=== PATIENT | female | born 1955 | race Caucasian/White ===

== ENCOUNTER 2021-07-26 11:12 | Outpatient (CLI) | payer MEDICARE, OTHER ==
[2021-07-27 12:27] LABS: SARS-CoV-2 PCR by NAA Not Detected (NotDetected)
== END 2021-07-26 11:13 | disposition home or self-care (01) ==
LOC: LABBT 11:12
PROVIDERS: ATTEND Internal Medicine Gastroenterology
DX: Z20.822 Contact with and (suspected) exposure to COVID-19 (principal)
CPT/HCPCS: U0003; U0005

== ENCOUNTER → 2021-07-30 | Day surgery (SDC) | payer MEDICARE, OTHER ==
[2021-07-26 15:18] VITALS: BMI 51.7
== END | disposition home or self-care (01) ==
LOC: SDC 06:34
PROVIDERS: ATTEND Internal Medicine Gastroenterology
DX: Z12.11 Encounter for screening for malignant neoplasm of colon (principal); J44.9 Chronic obstructive pulmonary disease, unspecified; I11.0 Hypertensive heart disease with heart failure; I50.9 Heart failure, unspecified; K21.9 Gastro-esophageal reflux disease without esophagitis; E11.9 Type 2 diabetes mellitus without complications; E66.01 Morbid (severe) obesity due to excess calories; Z53.8 Procedure and treatment not carried out for other reasons; Z68.43 Body mass index [BMI] 50.0-59.9, adult; Z86.010 Personal history of colon polyps; Z87.891 Personal history of nicotine dependence; Z79.01 Long term (current) use of anticoagulants; Z79.4 Long term (current) use of insulin; Z79.82 Long term (current) use of aspirin; Z79.84 Long term (current) use of oral hypoglycemic drugs; Z79.890 Hormone replacement therapy; Z79.899 Other long term (current) drug therapy; Z88.1 Allergy status to other antibiotic agents; Z88.5 Allergy status to narcotic agent
CPT/HCPCS: 36416

== ENCOUNTER 2023-05-14 09:12 | Inpatient (IN) | payer MEDICARE, MEDICAID ==
[2023-05-14] MEDS ORDERED: Ipratropium Bromide 2.5 ml Neb ONE (09:40)
[2023-05-14] MEDS ORDERED: Albuterol 2.5 MG (0.5 mL) NEB ONE (09:40)
[2023-05-14 09:58] LABS: #Eosinphils 0.3 thou/uL (0.0-0.7); #Monocytes 0.3 thou/uL (0.11-0.59); #Neutrophils 4.5 thou/uL (1.40-6.50); %Basophils 0.2 % (0.0-1.0); %Eosinophils 4.2 % (0.0-10.0); %Lymphocytes 19.9 % (21.0-51.0); %Monocytes 5.3 % (0.0-10.0); %Neutrophils 69.8 % (42.0-75.0); Hematocrit 39.2 % (36.0-47.0); Hemoglobin 12.2 g/dL (12.0-16.0); Mean Corpuscular HGB CONC 31.1 g/dL (32.0-36.0); Mean Corpuscular Hemoglobin 32.9 pg (27.0-31.0); Mean Corpuscular Volume 105.7 fl (78.0-98.0); Mean Platelet Volume 11.3 fL (7.4-10.4); Platelet Count 125 10x3/uL (130-400); RBC Distribution Width 15.5 % (11.5-14.5); Red Blood Cell (RBC) Count 3.71 mill/uL (4.20-5.40); White Blood Cell (WBC) Count 6.5 10x3/uL (4.8-10.8)
[2023-05-14 10:14] LABS: ALT (SGPT) 17 U/L (8-55); AST (SGOT) 21 U/L (5-34); Albumin 3.5 g/dL (3.4-4.8); Alkaline Phosphatase 40 U/L (40-110); BUN (Urea Nitrogen) 41 mg/dL (9.8-20.1); Bilirubin, Total 0.3 mg/dL (0.2-1.2); Calc. Creatinine Clearance 0 mL/min (70-130); Calcium 10.1 mg/dL (7.8-10.44); Estimated GFR 45; Globulin 2.9 g/dL (2.4-3.5); Glucose 122 mg/dL (80-115); Protein, Total 6.4 g/dL (5.8-8.1)
[2023-05-14 10:23] LABS: Anion Gap 15 mmol/L (10-20); Carbon Dioxide 36 mmol/L (23-31); Chloride 98 mmol/L (98-107); Potassium 4.8 mmol/L (3.5-5.1); Sodium 144 mmol/L (136-145)
[2023-05-14 10:25] LABS: Troponin I 0.041 ng/mL (< 0.028)
[2023-05-14 10:27] LABS: Influenza A by NAA Not Detected (NotDetected); Influenza B by NAA Not Detected (NotDetected); SARS-CoV-2 NAA Rapid Test Not Detected (NotDetected)
[2023-05-14] MEDS ORDERED: Iopamidol-370 76% 500 ML MDV (1 ML CHARGE) ONE (13:32)
[2023-05-14] MEDS ORDERED: cefTRIAXone (ROCEPHIN) 1 GM VIAL ONE (13:34)
[2023-05-14] MEDS ORDERED: Sodium Chloride 0.9% 100 ML ONE (13:35)
[2023-05-14] MEDS ORDERED: Ipratropium/Albuterol 3 ML NEB NEB PRN ×2 (13:42→15:15)
[2023-05-14] MEDS ORDERED: Acetaminophen 325 MG TAB PO PRN (13:42)
[2023-05-14] MEDS ORDERED: Vancomycin 1 GM/200 ML (FROZEN) BAG ONE (14:00)
[2023-05-14] MEDS ORDERED: Glucagon 1 MG/ML KIT IM PRN (15:01)
[2023-05-14] MEDS ORDERED: Dextrose 5% in Water 1,000 ML IV PRN (15:01)
[2023-05-14] MEDS ORDERED: Dextrose 50% Abboject 50 ML SYRINGE SLOW IVP PRN (15:01)
[2023-05-14 17:11] LABS: Troponin I 0.024 ng/mL (< 0.028)
[2023-05-14] MEDS ORDERED: Senokot S 8.6-50 MG TAB PO PRN (18:11)
[2023-05-14] MEDS: Ipratropium/Albuterol 3 ML NEB NEB SCH (18:22)
[2023-05-14 20:21] VITALS: BMI 54.4
[2023-05-14] MEDS: Vancomycin (BATCH) 1.5 GM in Premix 1 BAG IVPB SCH (21:11)
[2023-05-14] MEDS: guaiFENesin ER 600 MG TAB PO SCH (21:11)
[2023-05-14] MEDS: busPIRone HCl 10 MG TAB PO SCH (21:11)
[2023-05-14] MEDS: Vancomycin 1.25 GM in Sodium Chloride 0.9% 250 ML 250 ML IVPB SCH (22:08)
[2023-05-15] MEDS ORDERED: Loperamide HCl 2 MG CAP PO PRN (03:59)
[2023-05-15] MEDS ORDERED: Ondansetron ODT 4 MG TAB PO PRN (03:59)
[2023-05-15] MEDS: Levothyroxine Sodium 50 MCG TAB PO SCH (05:55)
[2023-05-15 06:36] LABS: #Monocytes 0.3 thou/uL (0.11-0.59); #Neutrophils 2.8 thou/uL (1.40-6.50); %Basophils 0.3 % (0.0-1.0); %Lymphocytes 19.5 % (21.0-51.0); %Neutrophils 70.9 % (42.0-75.0); Hematocrit 39.3 % (36.0-47.0); Hemoglobin 11.7 g/dL (12.0-16.0); Mean Corpuscular HGB CONC 29.8 g/dL (32.0-36.0); Mean Corpuscular Hemoglobin 31.2 pg (27.0-31.0); Mean Corpuscular Volume 104.8 fl (78.0-98.0); Mean Platelet Volume 11.6 fL (7.4-10.4); Platelet Count 124 10x3/uL (130-400); RBC Distribution Width 15.6 % (11.5-14.5); Red Blood Cell (RBC) Count 3.75 mill/uL (4.20-5.40)
[2023-05-15] MEDS: HumaLOG 300 UNITS/3 ML VIAL SC PRN ×2 (06:53→20:43)
[2023-05-15 07:08] LABS: ALT (SGPT) 15 U/L (8-55); AST (SGOT) 16 U/L (5-34); Albumin 3.4 g/dL (3.4-4.8); Alkaline Phosphatase 37 U/L (40-110); Anion Gap 12 mmol/L (10-20); BUN (Urea Nitrogen) 40 mg/dL (9.8-20.1); Bilirubin, Total 0.4 mg/dL (0.2-1.2); Calc. Creatinine Clearance 108 mL/min (70-130); Calcium 9.7 mg/dL (7.8-10.44); Carbon Dioxide 36 mmol/L (23-31); Chloride 99 mmol/L (98-107); Estimated GFR 47; Globulin 2.8 g/dL (2.4-3.5); Glucose 219 mg/dL (80-115); Potassium 4.5 mmol/L (3.5-5.1); Protein, Total 6.2 g/dL (5.8-8.1); Sodium 142 mmol/L (136-145)
[2023-05-15 07:31] LABS: Legionella Urinary Ag Negative (Negative); Strep pneumo Urine Ag NEGATIVE (NEGATIVE)
[2023-05-15] MEDS: Dicyclomine 20 MG TAB PO SCH (08:44)
[2023-05-15] MEDS: Torsemide 20 MG TAB PO SCH (08:44)
[2023-05-15] MEDS: Metolazone 5 MG TAB PO SCH (08:44)
[2023-05-15] MEDS: Gabapentin 300 MG CAP PO SCH (08:44)
[2023-05-15] MEDS: Apixaban 5 MG TAB PO SCH (08:45)
[2023-05-15] MEDS: Spironolactone 25 MG TAB PO SCH (08:45)
[2023-05-15] MEDS: Cyanocobalamin (Vitamin B-12) 1,000 MCG TAB PO SCH (08:45)
[2023-05-15] MEDS: Insulin Glargine 30 UNITS/0.3 ML VIAL SC SCH (08:45)
[2023-05-15] MEDS: Ferrous Sulfate 325 MG TAB PO SCH (08:45)
[2023-05-15] MEDS: Digoxin 0.125 MG TAB PO SCH (08:45)
[2023-05-15] MEDS ORDERED: Enoxaparin 80 MG (0.8 mL) SYRINGE SC SCH (09:00)
[2023-05-15] MEDS ORDERED: HumaLOG 300 UNITS/3 ML VIAL SC SCH (09:00)
[2023-05-15] MEDS ORDERED: Enoxaparin 40 MG (0.4 mL) SYRINGE SC SCH (09:00)
[2023-05-15] MEDS: cefTRIAXone\\ROCEPHIN 1 GM in Sodium Chloride 0.9% 100 ML IVPB SCH (14:10)
[2023-05-15] MEDS: Carvedilol 25 MG TAB PO SCH (17:50)
[2023-05-15] MEDS: traMADol HCl 50 MG TAB PO PRN (20:35)
[2023-05-15] MEDS: Fenofibrate Nanocrystallized 145 MG TAB PO SCH (20:37)
[2023-05-15] MEDS: Atorvastatin Calcium 10 MG TAB PO SCH (20:37)
[2023-05-15] MEDS: Vancomycin (BATCH) 1.5 GM in Premix 1 BAG IVPB SCH (21:12)
[2023-05-16 06:03] LABS: #Eosinphils 0.1 thou/uL (0.0-0.7); #Monocytes 0.3 thou/uL (0.11-0.59); #Neutrophils 4.8 thou/uL (1.40-6.50); %Basophils 0.3 % (0.0-1.0); %Eosinophils 2.1 % (0.0-10.0); %Lymphocytes 19.6 % (21.0-51.0); %Monocytes 5.1 % (0.0-10.0); %Neutrophils 72.5 % (42.0-75.0); Hematocrit 38.7 % (36.0-47.0); Hemoglobin 11.8 g/dL (12.0-16.0); Mean Corpuscular HGB CONC 30.5 g/dL (32.0-36.0); Mean Corpuscular Hemoglobin 31.6 pg (27.0-31.0); Mean Corpuscular Volume 103.5 fl (78.0-98.0); Mean Platelet Volume 11.6 fL (7.4-10.4); Platelet Count 136 10x3/uL (130-400); RBC Distribution Width 15.7 % (11.5-14.5); Red Blood Cell (RBC) Count 3.74 mill/uL (4.20-5.40); White Blood Cell (WBC) Count 6.7 10x3/uL (4.8-10.8)
[2023-05-16 06:28] LABS: ALT (SGPT) 12 U/L (8-55); AST (SGOT) 15 U/L (5-34); Albumin 3.2 g/dL (3.4-4.8); Alkaline Phosphatase 38 U/L (40-110); BUN (Urea Nitrogen) 47 mg/dL (9.8-20.1); Bilirubin, Total 0.3 mg/dL (0.2-1.2); Calc. Creatinine Clearance 105 mL/min (70-130); Calcium 9.8 mg/dL (7.8-10.44); Estimated GFR 46; Globulin 2.8 g/dL (2.4-3.5); Glucose 110 mg/dL (80-115)
[2023-05-16 06:38] LABS: Anion Gap 12 mmol/L (10-20); Carbon Dioxide 36 mmol/L (23-31); Chloride 98 mmol/L (98-107); Potassium 4.1 mmol/L (3.5-5.1); Sodium 142 mmol/L (136-145)
[2023-05-16] MEDS: Amoxicillin/Potassium Clav 875 MG TAB PO SCH (12:01)
[2023-05-16] MEDS: Doxycycline 100 MG CAP PO SCH (12:01)
[2023-05-16 12:15] VITALS: TEMP 98.1
[2023-05-16 16:00] VITALS: BP 130/79
[2023-05-16] MEDS ORDERED: Doxycycline 100 MG CAP PO SCH (21:00)
[2023-05-16] MEDS ORDERED: Amoxicillin/Potassium Clav 875 MG TAB PO SCH ×2 (21:00)
== END 2023-05-16 16:31 | disposition home or self-care (01) | DRG 193 ==
LOC: ERS 09:12 → ERHOLD 13:50 → 2NO 18:40
PROVIDERS: ADMIT Emergency Medicine; ATTEND Emergency Medicine
DX: J18.9 Pneumonia, unspecified organism (principal); J96.21 Acute and chronic respiratory failure with hypoxia; I50.22 Chronic systolic (congestive) heart failure; I13.0 Hypertensive heart and chronic kidney disease with heart failure and stage 1 through stage 4 chronic kidney disease, or unspecified chronic kidney disease; Z68.43 Body mass index [BMI] 50.0-59.9, adult; J44.9 Chronic obstructive pulmonary disease, unspecified; I48.91 Unspecified atrial fibrillation; N18.9 Chronic kidney disease, unspecified; E78.5 Hyperlipidemia, unspecified; E03.9 Hypothyroidism, unspecified; E11.22 Type 2 diabetes mellitus with diabetic chronic kidney disease; Z88.5 Allergy status to narcotic agent; Z88.1 Allergy status to other antibiotic agents; Z79.899 Other long term (current) drug therapy; Z79.4 Long term (current) use of insulin; Z79.01 Long term (current) use of anticoagulants; I25.10 Atherosclerotic heart disease of native coronary artery without angina pectoris; Z98.890 Other specified postprocedural states; F39 Unspecified mood [affective] disorder; E66.01 Morbid (severe) obesity due to excess calories; Z11.52 Encounter for screening for COVID-19
CPT/HCPCS: 36415; 36416; 71045; 71275; 80053; 83605; 83880; 84145; 84484; 85025; 85379; 87040; 87081; 87449; 87899; 93005; 96365; 96366; 96368; J0696; J1815; J3370; J3370-JW; J3490; J7611; J7620; Q9967

== ENCOUNTER 2023-09-01 13:21 | Inpatient (IN) | payer MEDICARE, MEDICAID ==
[2023-09-01 14:11] LABS: #Basophils 0.03 10x3/uL (0.0-0.2); %Basophils 0.4 % (0.0-1.0); %Lymphocytes 13.2 % (21.0-51.0); %Monocytes 4.5 % (0.0-10.0); %Neutrophils 78.5 % (42.0-75.0); Hematocrit 44.8 % (36.0-47.0); Hemoglobin 14.4 g/dL (12.0-16.0); Mean Corpuscular HGB CONC 32.1 g/dL (32.0-36.0); Mean Corpuscular Hemoglobin 31.8 pg (27.0-31.0); Mean Corpuscular Volume 98.9 fL (78.0-98.0); Mean Platelet Volume 12.2 fL (7.4-10.4); Platelet Count 134 10x3/uL (130-400); RBC Distribution Width 15.5 % (11.5-14.5); Red Blood Cell (RBC) Count 4.53 mill/uL (4.20-5.40)
[2023-09-01 14:29] LABS: ALT (SGPT) 13 U/L (8-55); AST (SGOT) 20 U/L (5-34); Albumin 3.2 g/dL (3.4-4.8); Alkaline Phosphatase 44 U/L (40-110); Anion Gap 17 mmol/L (10-20); BUN (Urea Nitrogen) 79 mg/dL (9.8-20.1); Bilirubin, Total 0.7 mg/dL (0.2-1.2); Calc. Creatinine Clearance 0 mL/min (70-130); Calcium 9.9 mg/dL (7.8-10.44); Carbon Dioxide 28 mmol/L (23-31); Chloride 95 mmol/L (98-107); Estimated GFR 24; Globulin 3.4 g/dL (2.4-3.5); Glucose 294 mg/dL (80-115); Potassium 4.1 mmol/L (3.5-5.1); Protein, Total 6.6 g/dL (5.8-8.1); Sodium 136 mmol/L (136-145)
[2023-09-01 14:34] LABS: Troponin I 0.032 ng/mL (< 0.028)
[2023-09-01] MEDS ORDERED: Glucagon 1 MG/ML KIT IM PRN (16:12)
[2023-09-01] MEDS ORDERED: Dextrose 50% Abboject 50 ML SYRINGE SLOW IVP PRN (16:12)
[2023-09-01] MEDS ORDERED: HumaLOG 300 UNITS/3 ML VIAL SC PRN (16:12)
[2023-09-01] MEDS ORDERED: Dextrose 5% in Water 1,000 ML IV PRN (16:12)
[2023-09-01] MEDS ORDERED: Nitroglycerin 0.4 MG TAB 1 EACH ONE (16:51)
[2023-09-01] MEDS ORDERED: Furosemide 40 MG (4 mL) VIAL ONE (16:51)
[2023-09-01] MEDS ORDERED: Acetaminophen 650 MG/20.3 ML UDCUP ONE (16:52)
[2023-09-01] MEDS ORDERED: Aspirin Chewable 81 MG TAB ONE (16:52)
[2023-09-01 17:20] LABS: Cardiac Risk 3.4 (Less than 4.5)
[2023-09-01 18:38] LABS: Hemoglobin A1c 8.6 % (4.0-6.0)
[2023-09-01 18:49] LABS: Troponin I 0.041 ng/mL (< 0.028)
[2023-09-01] MEDS: Insulin Glargine 30 UNITS/0.3 ML VIAL SC SCH (23:05)
[2023-09-02] MEDS: Carvedilol 25 MG TAB PO SCH (00:47)
[2023-09-02] MEDS: Furosemide 40 MG (4 mL) VIAL SLOW IVP SCH (00:48)
[2023-09-02] MEDS ORDERED: Ondansetron ODT 4 MG TAB PO PRN (02:45)
[2023-09-02] MEDS ORDERED: Loperamide HCl 2 MG CAP PO PRN (02:45)
[2023-09-02] MEDS ORDERED: Senokot S 8.6-50 MG TAB PO PRN (02:45)
[2023-09-02] MEDS ORDERED: Acetaminophen 325 MG TAB PO PRN (02:45)
[2023-09-02 03:12] LABS: Bacteria/HPF 4+ HPF (None Seen); Bilirubin Negative (Negative); Blood, Urine Negative (Negative); CAUTI Indications for Culture Alt mental st,lethar; Clarity Turbid (Clear); Glucose, Urine (Dipstick) Normal (Negative); Ketone, Urine Negative (Negative); Leukocyte 500 Leu/uL (Negative); Nitrite Negative (Negative); Protein, Urine (Dipstick) 50 mg/dL (Neg-Trace); RBC/HPF 0-3 HPF (0-3); Specific Gravity, Urine 1.012 (1.002-1.036); Triple Phosphate Crystal 4+ HPF (None Seen); Urobilinogen Normal mg/dL (Less than 2); pH, Urine 8.5 (5.0-9.0)
[2023-09-02 03:13] LABS: Urine Culture Reflex No No
[2023-09-02] MEDS: Levothyroxine Sodium 50 MCG TAB PO SCH (05:32)
[2023-09-02 05:43] LABS: #Basophils 0.03 10x3/uL (0.0-0.2); %Basophils 0.4 % (0.0-1.0); %Eosinophils 4.3 % (0.0-10.0); %Lymphocytes 22.5 % (21.0-51.0); %Monocytes 7.1 % (0.0-10.0); %Neutrophils 65.2 % (42.0-75.0); Hematocrit 43.8 % (36.0-47.0); Hemoglobin 14.3 g/dL (12.0-16.0); Mean Corpuscular HGB CONC 32.6 g/dL (32.0-36.0); Mean Corpuscular Hemoglobin 32.6 pg (27.0-31.0); Mean Platelet Volume 12.5 fL (7.4-10.4); Platelet Count 144 10x3/uL (130-400); RBC Distribution Width 15.7 % (11.5-14.5); Red Blood Cell (RBC) Count 4.38 mill/uL (4.20-5.40)
[2023-09-02 06:11] LABS: ALT (SGPT) 10 U/L (8-55); AST (SGOT) 28 U/L (5-34); Albumin 3.3 g/dL (3.4-4.8); Alkaline Phosphatase 39 U/L (40-110); Anion Gap 15 mmol/L (10-20); BUN (Urea Nitrogen) 87 mg/dL (9.8-20.1); Bilirubin, Total 0.9 mg/dL (0.2-1.2); Calc. Creatinine Clearance 58 mL/min (70-130); Calcium 10.3 mg/dL (7.8-10.44); Carbon Dioxide 33 mmol/L (23-31); Chloride 94 mmol/L (98-107); Estimated GFR 24; Globulin 3.7 g/dL (2.4-3.5); Glucose 190 mg/dL (80-115); Potassium 3.9 mmol/L (3.5-5.1); Sodium 138 mmol/L (136-145)
[2023-09-02] MEDS: Ipratropium/Albuterol 3 ML NEB NEB SCH (07:05)
[2023-09-02] MEDS ORDERED: Carvedilol 25 MG TAB PO SCH (08:00)
[2023-09-02] MEDS ORDERED: Aspirin 325 MG TAB PO SCH (09:00)
[2023-09-02] MEDS ORDERED: Insulin Glargine 30 UNITS/0.3 ML VIAL SC SCH (09:00)
[2023-09-02] MEDS: Lactated Ringer's 1,000 ML IV SCH (13:05)
[2023-09-02] MEDS: Ferrous Sulfate 325 MG TAB PO SCH (13:05)
[2023-09-02] MEDS: Aspirin 81 mg Enteric Coated Tablet PO SCH (13:06)
[2023-09-02] MEDS: Budesonide DR 3 MG CAP PO SCH (13:07)
[2023-09-02] MEDS: Alogliptin 25 MG TAB PO SCH (13:07)
[2023-09-02] MEDS: busPIRone HCl 10 MG TAB PO SCH (13:07)
[2023-09-02] MEDS: Cyanocobalamin (Vitamin B-12) 1,000 MCG TAB PO SCH (13:07)
[2023-09-02] MEDS: Gabapentin 300 MG CAP PO SCH (13:08)
[2023-09-02] MEDS: Digoxin 0.125 MG TAB PO SCH (13:08)
[2023-09-02] MEDS: Dicyclomine 20 MG TAB PO SCH (13:08)
[2023-09-02] MEDS: Insulin Glargine 30 UNITS/0.3 ML VIAL SC SCH (13:09)
[2023-09-02] MEDS: Torsemide 20 MG TAB PO SCH (13:10)
[2023-09-02] MEDS: Spironolactone 25 MG TAB PO SCH (13:14)
[2023-09-02] MEDS: Metolazone 5 MG TAB PO SCH (13:14)
[2023-09-02] MEDS: HumaLOG 300 UNITS/3 ML VIAL SC PRN (17:54)
[2023-09-02] MEDS ORDERED: Atorvastatin Calcium 10 MG TAB PO SCH (21:00)
[2023-09-02] MEDS: Atorvastatin Calcium 40 MG TAB PO SCH (22:23)
[2023-09-02] MEDS: Fenofibrate Nanocrystallized 145 MG TAB PO SCH (22:23)
[2023-09-02] MEDS: traMADol HCl 50 MG TAB PO PRN (22:24)
[2023-09-03 05:11] LABS: #Basophils Less than 0.03 10x3/uL (0.0-0.2); %Basophils 0.3 % (0.0-1.0); %Eosinophils 3.2 % (0.0-10.0); %Lymphocytes 18.5 % (21.0-51.0); %Monocytes 6.4 % (0.0-10.0); %Neutrophils 71.2 % (42.0-75.0); Hematocrit 43.5 % (36.0-47.0); Hemoglobin 14.3 g/dL (12.0-16.0); Mean Corpuscular HGB CONC 32.9 g/dL (32.0-36.0); Mean Corpuscular Hemoglobin 32.1 pg (27.0-31.0); Mean Corpuscular Volume 97.5 fL (78.0-98.0); Platelet Count 130 10x3/uL (130-400); RBC Distribution Width 15.8 % (11.5-14.5); Red Blood Cell (RBC) Count 4.46 mill/uL (4.20-5.40)
[2023-09-03 05:38] LABS: ALT (SGPT) 7 U/L (8-55); AST (SGOT) 19 U/L (5-34); Albumin 3.1 g/dL (3.4-4.8); Alkaline Phosphatase 39 U/L (40-110); Anion Gap 16 mmol/L (10-20); BUN (Urea Nitrogen) 90 mg/dL (9.8-20.1); Bilirubin, Total 0.9 mg/dL (0.2-1.2); Calc. Creatinine Clearance 63 mL/min (70-130); Calcium 10.1 mg/dL (7.8-10.44); Carbon Dioxide 30 mmol/L (23-31); Chloride 97 mmol/L (98-107); Estimated GFR 27; Globulin 3.3 g/dL (2.4-3.5); Glucose 208 mg/dL (80-115); Potassium 3.4 mmol/L (3.5-5.1); Protein, Total 6.4 g/dL (5.8-8.1); Sodium 140 mmol/L (136-145)
[2023-09-03] MEDS: Empagliflozin 10 MG TAB PO SCH (08:41)
[2023-09-03] MEDS: Potassium Chloride 20 MEQ TAB PO SCH (09:37)
[2023-09-03 13:04] VITALS: BP 116/68; TEMP 97.8
[2023-09-03] MEDS ORDERED: Insulin Glargine 30 UNITS/0.3 ML VIAL SC SCH (21:00)
== END 2023-09-03 15:30 | DRG 682 ==
LOC: ERS 13:21 → 2NO 16:12 → OBSVTOIN 09-03 14:33
PROVIDERS: ADMIT Family Medicine; ATTEND Family Medicine
DX: N17.9 Acute kidney failure, unspecified (principal); I21.A1 Myocardial infarction type 2; I50.22 Chronic systolic (congestive) heart failure; Z68.43 Body mass index [BMI] 50.0-59.9, adult; R07.89 Other chest pain; E66.9 Obesity, unspecified; E78.5 Hyperlipidemia, unspecified; J44.9 Chronic obstructive pulmonary disease, unspecified; I25.10 Atherosclerotic heart disease of native coronary artery without angina pectoris; I11.0 Hypertensive heart disease with heart failure; I48.91 Unspecified atrial fibrillation; E11.9 Type 2 diabetes mellitus without complications; Z98.890 Other specified postprocedural states; Z79.4 Long term (current) use of insulin; Z79.899 Other long term (current) drug therapy; Z88.8 Allergy status to other drugs, medicaments and biological substances; Z88.5 Allergy status to narcotic agent; Z79.01 Long term (current) use of anticoagulants
CPT/HCPCS: 36415; 36416; 70450; 71045; 80053; 80061; 81001; 82570; 83036; 83880; 83930; 83935; 84443; 84484; 84540; 85025; 85379; 87077; 87086; 87186; 93005; 93306; 94640; 96374; 96376; G0378; J1815; J1940; J7120; J7620

== ENCOUNTER 2023-10-08 09:27 | Inpatient (IN) | payer MEDICARE, MEDICAID ==
[2023-10-08] MEDS ORDERED: Acetaminophen 500 MG TAB ONE (10:09)
[2023-10-08] MEDS ORDERED: Ketorolac Tromethamine 30 MG (1 mL) VIAL ONE (10:09)
[2023-10-08] MEDS ORDERED: Piperacillin/Tazobactam 4.5 GM VIAL ONE (10:09)
[2023-10-08] MEDS ORDERED: Sodium Chloride 0.9% 100 ML ONE (10:09)
[2023-10-08 10:17] LABS: Actual Bicarbonate (HCO3v) 31.8 mEq/L (22-28); Analyzer IN Cardio ER; Base Excess 7.4 mEq/L (-2.0 to +3.0); Calcium, Ionized (venous) 1.13 mmol/L (1.16-1.32); Chloride (VBG) 95 mmol/L (98-106); Hematocrit-VBG 44 % (36.0-47.0); Hemoglobin (Hb) 15.1 g/dL (11.7-16.1); Potassium (VBG) 3.32 mmol/L (3.70-5.30); Sodium 139 mmol/L (133-146)
[2023-10-08 10:29] LABS: #Basophils Less than 0.03 10x3/uL (0.0-0.2); #Eosinphils Less than 0.03 10x3/uL (0.0-0.7); %Basophils 0.1 % (0.0-1.0); %Eosinophils 0.1 % (0.0-10.0); %Lymphocytes 3.8 % (21.0-51.0); %Monocytes 3.7 % (0.0-10.0); %Neutrophils 91.7 % (42.0-75.0); Hematocrit 43.9 % (36.0-47.0); Hemoglobin 14.1 g/dL (12.0-16.0); Mean Corpuscular HGB CONC 32.1 g/dL (32.0-36.0); Mean Corpuscular Hemoglobin 32.5 pg (27.0-31.0); Mean Corpuscular Volume 101.2 fL (78.0-98.0); Mean Platelet Volume 11.2 fL (7.4-10.4); Platelet Count 164 10x3/uL (130-400); RBC Distribution Width 16.1 % (11.5-14.5); Red Blood Cell (RBC) Count 4.34 mill/uL (4.20-5.40)
[2023-10-08] MEDS ORDERED: Acetaminophen 650 MG Suppository ONE (10:44)
[2023-10-08 10:59] LABS: ALT (SGPT) 15 U/L (8-55); AST (SGOT) 21 U/L (5-34); Albumin 2.9 g/dL (3.4-4.8); Alkaline Phosphatase 45 U/L (40-110); Anion Gap 18 mmol/L (10-20); BUN (Urea Nitrogen) 69 mg/dL (9.8-20.1); Bilirubin, Total 0.7 mg/dL (0.2-1.2); Calc. Creatinine Clearance 0 mL/min (70-130); Calcium 9.9 mg/dL (7.8-10.44); Carbon Dioxide 28 mmol/L (23-31); Chloride 97 mmol/L (98-107); Estimated GFR 31; Globulin 3.3 g/dL (2.4-3.5); Glucose 227 mg/dL (80-115); Magnesium 2.2 mg/dL (1.6-2.6); Potassium 3.5 mmol/L (3.5-5.1); Protein, Total 6.2 g/dL (5.8-8.1); Sodium 139 mmol/L (136-145)
[2023-10-08 11:03] LABS: Troponin I 0.045 ng/mL (< 0.028)
[2023-10-08 11:08] LABS: INR-International Normal Ratio 1.5; Prothrombin Time 17.8 sec (12.0-14.7)
[2023-10-08 11:09] LABS: PTT 33.6 sec (22.9-36.1)
[2023-10-08 11:21] LABS: Bacteria/HPF None Seen HPF (None Seen); Bilirubin Negative (Negative); Blood, Urine Negative (Negative); CAUTI Indications for Culture Fever or rigors; Clarity Clear (Clear); Glucose, Urine (Dipstick) Greater than 1000 mg/dL (Negative); Ketone, Urine Negative (Negative); Leukocyte Negative Leu/uL (Negative); Nitrite Negative (Negative); Protein, Urine (Dipstick) Negative (Neg-Trace); RBC/HPF 0-3 HPF (0-3); Specific Gravity, Urine 1.012 (1.002-1.036); Urobilinogen Normal mg/dL (Less than 2); WBC/HPF 0-3 HPF (0-3)
[2023-10-08 11:22] LABS: Urine Culture Reflex No No
[2023-10-08 11:32] LABS: Influenza A by NAA Not Detected (NotDetected); Influenza B by NAA Not Detected (NotDetected); SARS-CoV-2 NAA Rapid Test Not Detected (NotDetected)
[2023-10-08] MEDS ORDERED: NOREPINEPHRINE 8 MG/250 ML-D5W 250 ML ONE (13:04)
[2023-10-08] MEDS ORDERED: Acetaminophen 325 MG TAB PO PRN (13:15)
[2023-10-08] MEDS ORDERED: Ondansetron PF 4 MG/2 ML Vial IVP PRN (13:15)
[2023-10-08] MEDS ORDERED: Ondansetron ODT 4 MG TAB SL PRN (13:15)
[2023-10-08] MEDS ORDERED: Dextrose 50% Abboject 50 ML SYRINGE SLOW IVP PRN (13:27)
[2023-10-08] MEDS ORDERED: Dextrose 5% in Water 1,000 ML IV PRN (13:27)
[2023-10-08] MEDS ORDERED: Glucagon 1 MG/ML KIT IM PRN (13:27)
[2023-10-08] MEDS ORDERED: HumaLOG 300 UNITS/3 ML VIAL SC PRN ×2 (13:35)
[2023-10-08 13:39] LABS: Lactic Acid 2.8 mmol/L (0.5-2.2)
[2023-10-08] MEDS ORDERED: Insulin Lispro 100 UNIT/ML 10 ML VIAL SC PRN (13:45)
[2023-10-08] MEDS ORDERED: Loperamide HCl 2 MG CAP PO PRN (14:10)
[2023-10-08] MEDS ORDERED: Milk Of Magnesia 30 ML UDCUP PO PRN (14:10)
[2023-10-08] MEDS: Vancomycin (BATCH) 2.5 GM in Premix 1 BAG IVPB SCH (16:15)
[2023-10-08] MEDS: busPIRone HCl 10 MG TAB PO SCH (16:15)
[2023-10-08 16:41] LABS: Troponin I 0.056 ng/mL (< 0.028)
[2023-10-08] MEDS: Lactated Ringer's 1,000 ML IV SCH (16:49)
[2023-10-08] MEDS: Lactated Ringer's 500 ML IV SCH ×2 (16:50→19:55)
[2023-10-08 17:59] VITALS: BMI 49.5
[2023-10-08] MEDS: Gabapentin 300 MG CAP PO SCH (18:01)
[2023-10-08] MEDS: Piperacillin/Tazobactam 4.5 GM in Sodium Chloride 0.9% 100 ML IVPB SCH ×2 (18:35→18:38)
[2023-10-08] MEDS: Ipratropium/Albuterol 3 ML NEB NEB SCH (19:03)
[2023-10-08] MEDS ORDERED: Apixaban 5 MG TAB PO SCH (21:00)
[2023-10-08] MEDS ORDERED: Lantus 1000 UNITS/10 ML VIAL SC SCH (21:00)
[2023-10-08 21:25] LABS: Troponin I 0.061 ng/mL (< 0.028)
[2023-10-08] MEDS ORDERED: Vancomycin 2 GM in Sodium Chloride 0.9% 500 ML IVPB SCH (21:30)
[2023-10-08] MEDS: Insulin Glargine 30 UNITS/0.3 ML VIAL SC SCH (22:22)
[2023-10-08] MEDS: Atorvastatin Calcium 10 MG TAB PO SCH (22:23)
[2023-10-08] MEDS: Budesonide DR 3 MG CAP PO SCH (22:23)
[2023-10-08] MEDS: Fenofibrate Nanocrystallized 145 MG TAB PO SCH (22:24)
[2023-10-08] MEDS: Docusate 100 MG CAP PO SCH (22:24)
[2023-10-09] MEDS: Lactated Ringer's 500 ML IV SCH (05:00)
[2023-10-09] MEDS: Nystatin Powder 15 GM BOT TOP SCH (06:24)
[2023-10-09] MEDS: Levothyroxine Sodium 50 MCG TAB PO SCH (06:30)
[2023-10-09] MEDS: NOREPINEPHRINE 8 MG/250 ML-D5W 250 ML IVPB PRN (08:02)
[2023-10-09 08:06] LABS: #Basophils 0.03 10x3/uL (0.0-0.2); %Basophils 0.2 % (0.0-1.0); %Eosinophils 0.4 % (0.0-10.0); %Lymphocytes 6.6 % (21.0-51.0); %Monocytes 3.5 % (0.0-10.0); %Neutrophils 88.8 % (42.0-75.0); Hematocrit 38.7 % (36.0-47.0); Hemoglobin 12.4 g/dL (12.0-16.0); Mean Corpuscular Volume 102.9 fL (78.0-98.0); Mean Platelet Volume 11.3 fL (7.4-10.4); Platelet Count 185 10x3/uL (130-400); RBC Distribution Width 16.5 % (11.5-14.5); Red Blood Cell (RBC) Count 3.76 mill/uL (4.20-5.40)
[2023-10-09] MEDS: Aspirin 81 mg Enteric Coated Tablet PO SCH (08:09)
[2023-10-09] MEDS: Cyanocobalamin (Vitamin B-12) 1,000 MCG TAB PO SCH (08:09)
[2023-10-09] MEDS: Digoxin 0.125 MG TAB PO SCH (08:09)
[2023-10-09] MEDS: Ferrous Sulfate 325 MG TAB PO SCH (08:09)
[2023-10-09] MEDS: Empagliflozin 10 MG TAB PO SCH (08:09)
[2023-10-09 08:24] LABS: Vancomycin, Random 29.1 ug/mL (See Comment)
[2023-10-09 08:25] LABS: ALT (SGPT) 16 U/L (8-55); AST (SGOT) 37 U/L (5-34); Albumin 2.3 g/dL (3.4-4.8); Alkaline Phosphatase 39 U/L (40-110); Anion Gap 13 mmol/L (10-20); BUN (Urea Nitrogen) 69 mg/dL (9.8-20.1); Calc. Creatinine Clearance 60 mL/min (70-130); Calcium 8.7 mg/dL (7.8-10.44); Carbon Dioxide 32 mmol/L (23-31); Chloride 97 mmol/L (98-107); Estimated GFR 26; Glucose 201 mg/dL (80-115); Potassium 2.8 mmol/L (3.5-5.1); Protein, Total 5.3 g/dL (5.8-8.1); Sodium 139 mmol/L (136-145)
[2023-10-09] MEDS ORDERED: Alogliptin 6.25 MG TAB PO SCH (09:00)
[2023-10-09] MEDS ORDERED: Insulin Lispro 100 UNIT/ML 10 ML VIAL SC SCH (09:00)
[2023-10-09] MEDS: Acetaminophen 325 MG TAB PO PRN (09:15)
[2023-10-09 10:09] LABS: Digoxin 0.92 ng/mL (0.8-2.0)
[2023-10-09] MEDS ORDERED: Electrolyte Replacement Protocol FS PRN (10:45)
[2023-10-09] MEDS: Potassium Chloride 20 MEQ TAB PO SCH ×2 (11:38→19:58)
[2023-10-09] MEDS ORDERED: Vancomycin 1 GM in Premix 1 BAG IVPB SCH (12:00)
[2023-10-09] MEDS: Piperacillin/Tazobactam 3.375 GM in Sodium Chloride 0.9% 100 ML IVPB SCH (12:27)
[2023-10-09] MEDS: Insulin Lispro 100 UNIT/ML 10 ML VIAL SC PRN ×2 (12:27→19:49)
[2023-10-09] MEDS: Electrolyte Replacement Protocol 1 EACH FS ONE (13:45)
[2023-10-09 18:43] LABS: Potassium 3.2 mmol/L (3.5-5.1)
[2023-10-09] MEDS: Apixaban 5 MG TAB PO SCH (19:51)
[2023-10-09 21:42] LABS: Troponin I 0.057 ng/mL (< 0.028)
[2023-10-10 04:29] LABS: #Basophils Less than 0.03 10x3/uL (0.0-0.2); %Basophils 0.1 % (0.0-1.0); %Eosinophils 1.4 % (0.0-10.0); %Lymphocytes 13.4 % (21.0-51.0); %Monocytes 4.6 % (0.0-10.0); %Neutrophils 79.7 % (42.0-75.0); Hematocrit 35.1 % (36.0-47.0); Hemoglobin 11.4 g/dL (12.0-16.0); Mean Corpuscular HGB CONC 32.5 g/dL (32.0-36.0); Mean Corpuscular Hemoglobin 32.9 pg (27.0-31.0); Mean Corpuscular Volume 101.4 fL (78.0-98.0); Mean Platelet Volume 10.7 fL (7.4-10.4); Platelet Count 152 10x3/uL (130-400); RBC Distribution Width 16.3 % (11.5-14.5); Red Blood Cell (RBC) Count 3.46 mill/uL (4.20-5.40)
[2023-10-10 04:49] LABS: ALT (SGPT) 14 U/L (8-55); AST (SGOT) 29 U/L (5-34); Alkaline Phosphatase 46 U/L (40-110); Anion Gap 12 mmol/L (10-20); BUN (Urea Nitrogen) 57 mg/dL (9.8-20.1); Bilirubin, Total 0.6 mg/dL (0.2-1.2); Calc. Creatinine Clearance 70 mL/min (70-130); Calcium 8.7 mg/dL (7.8-10.44); Carbon Dioxide 31 mmol/L (23-31); Chloride 98 mmol/L (98-107); Estimated GFR 32; Globulin 2.8 g/dL (2.4-3.5); Glucose 142 mg/dL (80-115); Potassium 3.6 mmol/L (3.5-5.1); Protein, Total 4.8 g/dL (5.8-8.1); Sodium 137 mmol/L (136-145)
[2023-10-10] MEDS: Pantoprazole DR 40 MG TAB PO SCH (08:34)
[2023-10-10] MEDS: Insulin Glargine 30 UNITS/0.3 ML VIAL SC SCH (09:31)
[2023-10-10] MEDS: Senokot S 8.6-50 MG TAB PO PRN (19:30)
[2023-10-11] MEDS: Ondansetron PF 4 MG/2 ML Vial IVP PRN (01:58)
[2023-10-11 06:05] LABS: #Basophils Less than 0.03 10x3/uL (0.0-0.2); %Basophils 0.2 % (0.0-1.0); %Eosinophils 2.4 % (0.0-10.0); %Lymphocytes 15.4 % (21.0-51.0); %Monocytes 6.2 % (0.0-10.0); Hematocrit 32.7 % (36.0-47.0); Hemoglobin 10.5 g/dL (12.0-16.0); Mean Corpuscular HGB CONC 32.1 g/dL (32.0-36.0); Mean Corpuscular Volume 102.8 fL (78.0-98.0); Mean Platelet Volume 10.5 fL (7.4-10.4); Platelet Count 136 10x3/uL (130-400); Red Blood Cell (RBC) Count 3.18 mill/uL (4.20-5.40)
[2023-10-11 06:27] LABS: ALT (SGPT) 13 U/L (8-55); AST (SGOT) 24 U/L (5-34); Albumin 1.9 g/dL (3.4-4.8); Alkaline Phosphatase 49 U/L (40-110); Anion Gap 9 mmol/L (10-20); BUN (Urea Nitrogen) 40 mg/dL (9.8-20.1); Bilirubin, Total 0.4 mg/dL (0.2-1.2); Calc. Creatinine Clearance 92 mL/min (70-130); Calcium 8.5 mg/dL (7.8-10.44); Carbon Dioxide 31 mmol/L (23-31); Chloride 101 mmol/L (98-107); Estimated GFR 42; Globulin 2.8 g/dL (2.4-3.5); Glucose 172 mg/dL (80-115); Potassium 3.5 mmol/L (3.5-5.1); Protein, Total 4.7 g/dL (5.8-8.1); Sodium 137 mmol/L (136-145)
[2023-10-11 07:51] LABS: Digoxin 0.79 ng/mL (0.8-2.0)
[2023-10-11] MEDS: Potassium Chloride 20 MEQ TAB PO SCH (09:40)
[2023-10-11] MEDS: Insulin Glargine 30 UNITS/0.3 ML VIAL SC SCH (09:42)
[2023-10-11] MEDS: Simethicone Chewable 80 MG TAB PO PRN (12:45)
[2023-10-11] MEDS: Polyethylene Glycol 3350 17 GM Packet PO SCH (12:47)
[2023-10-11 13:44] LABS: Potassium 3.7 mmol/L (3.5-5.1)
[2023-10-12 04:29] LABS: #Basophils Less than 0.03 10x3/uL (0.0-0.2); %Basophils 0.2 % (0.0-1.0); %Eosinophils 3.7 % (0.0-10.0); %Monocytes 9.2 % (0.0-10.0); Hematocrit 32.4 % (36.0-47.0); Hemoglobin 10.1 g/dL (12.0-16.0); Mean Corpuscular HGB CONC 31.2 g/dL (32.0-36.0); Mean Corpuscular Hemoglobin 32.5 pg (27.0-31.0); Mean Corpuscular Volume 104.2 fL (78.0-98.0); Mean Platelet Volume 10.7 fL (7.4-10.4); Platelet Count 136 10x3/uL (130-400); RBC Distribution Width 15.9 % (11.5-14.5); Red Blood Cell (RBC) Count 3.11 mill/uL (4.20-5.40)
[2023-10-12 04:46] LABS: ALT (SGPT) 15 U/L (8-55); AST (SGOT) 22 U/L (5-34); Albumin 1.9 g/dL (3.4-4.8); Alkaline Phosphatase 40 U/L (40-110); Anion Gap 12 mmol/L (10-20); BUN (Urea Nitrogen) 30 mg/dL (9.8-20.1); Bilirubin, Total 0.4 mg/dL (0.2-1.2); Calc. Creatinine Clearance 107 mL/min (70-130); Calcium 8.6 mg/dL (7.8-10.44); Carbon Dioxide 27 mmol/L (23-31); Chloride 108 mmol/L (98-107); Estimated GFR 50; Globulin 2.8 g/dL (2.4-3.5); Glucose 126 mg/dL (80-115); Potassium 3.8 mmol/L (3.5-5.1); Protein, Total 4.7 g/dL (5.8-8.1); Sodium 143 mmol/L (136-145)
[2023-10-12] MEDS: Polyethylene Glycol 3350 17 GM Packet PO SCH (08:24)
[2023-10-12] MEDS: Insulin Glargine 30 UNITS/0.3 ML VIAL SC SCH (09:17)
[2023-10-13] MEDS ORDERED: Acetaminophen 325 MG TAB PO PRN (08:24)
[2023-10-13] MEDS ORDERED: Non-Formulary Item 1 EACH (Ondansetron Hcl [Zofran] 4 MG Tab) PO PRN (08:24)
[2023-10-13] MEDS ORDERED: Ondansetron ODT 4 MG TAB PO PRN (08:34)
[2023-10-13] MEDS: Torsemide 20 MG TAB PO SCH (11:13)
[2023-10-13] MEDS: Carvedilol 3.125 MG TAB PO SCH (16:49)
[2023-10-14] MEDS: Torsemide 20 MG TAB PO SCH (09:46)
[2023-10-14 11:13] LABS: #Basophils Less than 0.03 10x3/uL (0.0-0.2); %Basophils 0.3 % (0.0-1.0); %Eosinophils 2.7 % (0.0-10.0); %Lymphocytes 16.7 % (21.0-51.0); %Monocytes 7.9 % (0.0-10.0); %Neutrophils 67.5 % (42.0-75.0); Hematocrit 36.1 % (36.0-47.0); Hemoglobin 11.4 g/dL (12.0-16.0); Mean Corpuscular HGB CONC 31.6 g/dL (32.0-36.0); Mean Corpuscular Hemoglobin 32.6 pg (27.0-31.0); Mean Corpuscular Volume 103.1 fL (78.0-98.0); Mean Platelet Volume 10.1 fL (7.4-10.4); Platelet Count 158 10x3/uL (130-400); RBC Distribution Width 15.8 % (11.5-14.5)
[2023-10-14 13:55] LABS: ALT (SGPT) 12 U/L (8-55); AST (SGOT) 20 U/L (5-34); Albumin 2.1 g/dL (3.4-4.8); Alkaline Phosphatase 38 U/L (40-110); Anion Gap 10 mmol/L (10-20); BUN (Urea Nitrogen) 17 mg/dL (9.8-20.1); Bilirubin, Total 0.4 mg/dL (0.2-1.2); Calc. Creatinine Clearance 107 mL/min (70-130); Calcium 9.4 mg/dL (7.8-10.44); Carbon Dioxide 27 mmol/L (23-31); Chloride 109 mmol/L (98-107); Estimated GFR 50; Globulin 2.9 g/dL (2.4-3.5); Glucose 81 mg/dL (80-115); Potassium 4.3 mmol/L (3.5-5.1); Sodium 142 mmol/L (136-145)
[2023-10-14] MEDS: Carvedilol 6.25 MG TAB PO SCH (16:32)
[2023-10-15 05:45] LABS: #Basophils Less than 0.03 10x3/uL (0.0-0.2); %Basophils 0.3 % (0.0-1.0); %Eosinophils 2.3 % (0.0-10.0); %Lymphocytes 16.2 % (21.0-51.0); %Monocytes 7.4 % (0.0-10.0); %Neutrophils 68.9 % (42.0-75.0); Hematocrit 35.5 % (36.0-47.0); Hemoglobin 11.2 g/dL (12.0-16.0); Mean Corpuscular HGB CONC 31.5 g/dL (32.0-36.0); Mean Corpuscular Hemoglobin 32.6 pg (27.0-31.0); Mean Corpuscular Volume 103.2 fL (78.0-98.0); Platelet Count 173 10x3/uL (130-400); RBC Distribution Width 15.6 % (11.5-14.5); Red Blood Cell (RBC) Count 3.44 mill/uL (4.20-5.40)
[2023-10-15 06:08] LABS: ALT (SGPT) 10 U/L (8-55); AST (SGOT) 17 U/L (5-34); Alkaline Phosphatase 38 U/L (40-110); Anion Gap 10 mmol/L (10-20); BUN (Urea Nitrogen) 17 mg/dL (9.8-20.1); Bilirubin, Total 0.5 mg/dL (0.2-1.2); Calc. Creatinine Clearance 95 mL/min (70-130); Calcium 9.2 mg/dL (7.8-10.44); Carbon Dioxide 26 mmol/L (23-31); Chloride 108 mmol/L (98-107); Estimated GFR 43; Globulin 2.9 g/dL (2.4-3.5); Glucose 88 mg/dL (80-115); Potassium 4.1 mmol/L (3.5-5.1); Protein, Total 4.9 g/dL (5.8-8.1); Sodium 140 mmol/L (136-145)
[2023-10-15 07:28] VITALS: TEMP 98.4
[2023-10-15] MEDS: Spironolactone 25 MG TAB PO SCH (08:59)
[2023-10-15 17:24] VITALS: BP 138/63
[2023-10-16] MEDS ORDERED: Metolazone 5 MG TAB PO SCH (09:00)
== END 2023-10-15 18:53 | DRG 871 ==
LOC: ERS 09:27 → ERHOLD 12:46 → CCU 15:29 → T4-A 10-12 17:07
PROVIDERS: ADMIT Student in an Organized Health Care Education/Training Program; ATTEND Student in an Organized Health Care Education/Training Program
PROC: 3E033XZ Introduction of Vasopressor into Peripheral Vein, Percutaneous Approach (ICD-10-PCS; principal; 2023-10-08)
PROC: 3E03329 Introduction of Other Anti-infective into Peripheral Vein, Percutaneous Approach (ICD-10-PCS; 2023-10-08)
PROC: 05HY33Z Insertion of Infusion Device into Upper Vein, Percutaneous Approach (ICD-10-PCS; 2023-10-09)
DX: A41.9 Sepsis, unspecified organism (principal); G93.41 Metabolic encephalopathy; J96.21 Acute and chronic respiratory failure with hypoxia; R65.21 Severe sepsis with septic shock; I13.0 Hypertensive heart and chronic kidney disease with heart failure and stage 1 through stage 4 chronic kidney disease, or unspecified chronic kidney disease; N17.9 Acute kidney failure, unspecified; I50.22 Chronic systolic (congestive) heart failure; Z68.43 Body mass index [BMI] 50.0-59.9, adult; I24.89 Other forms of acute ischemic heart disease; I48.20 Chronic atrial fibrillation, unspecified; J44.9 Chronic obstructive pulmonary disease, unspecified; N18.9 Chronic kidney disease, unspecified; D63.1 Anemia in chronic kidney disease; E11.22 Type 2 diabetes mellitus with diabetic chronic kidney disease; E66.01 Morbid (severe) obesity due to excess calories; I25.10 Atherosclerotic heart disease of native coronary artery without angina pectoris; E03.9 Hypothyroidism, unspecified; L89.302 Pressure ulcer of unspecified buttock, stage 2; Z88.1 Allergy status to other antibiotic agents; Z95.1 Presence of aortocoronary bypass graft; Z90.710 Acquired absence of both cervix and uterus; Z98.890 Other specified postprocedural states; Z88.5 Allergy status to narcotic agent; Z88.8 Allergy status to other drugs, medicaments and biological substances; Z99.81 Dependence on supplemental oxygen; Z79.899 Other long term (current) drug therapy; Z79.4 Long term (current) use of insulin
CPT/HCPCS: 36415; 36416; 51702; 71045; 74018; 80053; 80162; 80202; 81001; 82805; 83605; 83735; 83880; 84145; 84443; 84484; 85025; 85610; 85730; 87040; 87081; 93005; 93010; 93306; 94640; 94660; 94760; 96365; 96366; 96375; J1815; J1885; J2405; J2543; J3370; J3490; J7120; J7620

== ENCOUNTER 2024-01-25 14:12 | Emergency (ER) | payer MEDICARE, MEDICAID ==
[2024-01-25 15:09] LABS: #Basophils 0.03 10x3/uL (0.0-0.2); %Basophils 0.3 % (0.0-1.0); %Eosinophils 2.4 % (0.0-10.0); %Lymphocytes 14.7 % (21.0-51.0); %Monocytes 4.8 % (0.0-10.0); Hematocrit 38.8 % (36.0-47.0); Hemoglobin 12.2 g/dL (12.0-16.0); Mean Corpuscular HGB CONC 31.4 g/dL (32.0-36.0); Mean Corpuscular Hemoglobin 31.4 pg (27.0-31.0); Mean Platelet Volume 10.7 fL (7.4-10.4); Platelet Count 257 10x3/uL (130-400); RBC Distribution Width 15.8 % (11.5-14.5); Red Blood Cell (RBC) Count 3.88 mill/uL (4.20-5.40)
[2024-01-25 15:34] LABS: ALT (SGPT) 7 U/L (8-55); AST (SGOT) 18 U/L (5-34); Albumin 2.8 g/dL (3.4-4.8); Alkaline Phosphatase 53 U/L (40-110); Anion Gap 17 mmol/L (10-20); BUN (Urea Nitrogen) 57 mg/dL (9.8-20.1); Bilirubin, Total 0.3 mg/dL (0.2-1.2); Calc. Creatinine Clearance 0 mL/min (70-130); Calcium 9.9 mg/dL (7.8-10.44); Carbon Dioxide 34 mmol/L (23-31); Chloride 93 mmol/L (98-107); Estimated GFR 36; Globulin 3.8 g/dL (2.4-3.5); Glucose 118 mg/dL (80-115); Potassium 3.5 mmol/L (3.5-5.1); Protein, Total 6.6 g/dL (5.8-8.1); Sodium 140 mmol/L (136-145)
[2024-01-25] MEDS ORDERED: Meropenem 500 MG in Sodium Chloride 0.9% 100 ML IVPB SCH (16:45)
== END 2024-01-25 19:55 ==
LOC: ERS 14:12
DX: N39.0 Urinary tract infection, site not specified (principal); N17.9 Acute kidney failure, unspecified; K57.32 Diverticulitis of large intestine without perforation or abscess without bleeding; I48.91 Unspecified atrial fibrillation; I13.0 Hypertensive heart and chronic kidney disease with heart failure and stage 1 through stage 4 chronic kidney disease, or unspecified chronic kidney disease; I50.9 Heart failure, unspecified; N18.9 Chronic kidney disease, unspecified; J44.9 Chronic obstructive pulmonary disease, unspecified; Z79.01 Long term (current) use of anticoagulants
CPT/HCPCS: 70450; 73610; 74176; 80053; 83605; 85025; 93005; J2185; 36415; 96374

== ENCOUNTER 2024-04-04 16:54 | Emergency (ER) | payer MEDICARE ==
[~2024-04-04 16:54] MED LIST: Iopamidol-370 76% 500 ML MDV (1 ML CHARGE) ONE
[2024-04-04] MEDS ORDERED: Ondansetron PF 4 MG/2 ML Vial ONE (17:50)
[2024-04-04] MEDS ORDERED: HYDROmorphone 0.5 MG/0.5 ML SYRINGE ONE (17:50)
[2024-04-04 18:18] LABS: #Basophils Less than 0.03 10x3/uL (0.0-0.2); %Basophils 0.2 % (0.0-1.0); %Eosinophils 0.6 % (0.0-10.0); %Lymphocytes 10.7 % (21.0-51.0); %Monocytes 3.6 % (0.0-10.0); %Neutrophils 84.1 % (42.0-75.0); Hematocrit 28.9 % (36.0-47.0); Hemoglobin 9.2 g/dL (12.0-16.0); Mean Corpuscular HGB CONC 31.8 g/dL (32.0-36.0); Mean Corpuscular Hemoglobin 32.1 pg (27.0-31.0); Mean Corpuscular Volume 100.7 fL (78.0-98.0); Mean Platelet Volume 11.1 fL (7.4-10.4); Platelet Count 210 10x3/uL (130-400); RBC Distribution Width 15.9 % (11.5-14.5); Red Blood Cell (RBC) Count 2.87 mill/uL (4.20-5.40)
[2024-04-04 18:34] LABS: ALT (SGPT) 11 U/L (8-55); AST (SGOT) 14 U/L (5-34); Albumin 2.6 g/dL (3.4-4.8); Alkaline Phosphatase 34 U/L (40-110); Anion Gap 17 mmol/L (10-20); BUN (Urea Nitrogen) 74 mg/dL (9.8-20.1); Bilirubin, Total 0.5 mg/dL (0.2-1.2); Calc. Creatinine Clearance 0 mL/min (70-130); Calcium 9.4 mg/dL (7.8-10.44); Carbon Dioxide 29 mmol/L (23-31); Chloride 100 mmol/L (98-107); Estimated GFR 42; Globulin 3.3 g/dL (2.4-3.5); Glucose 227 mg/dL (80-115); Lipase 27 U/L (8-78); Potassium 3.8 mmol/L (3.5-5.1); Protein, Total 5.9 g/dL (5.8-8.1); Sodium 142 mmol/L (136-145)
[2024-04-04 21:39] LABS: Bilirubin Negative (Negative); Blood, Urine Negative (Negative); CAUTI Indications for Culture Acute Hematuria; Clarity Turbid (Clear); Glucose, Urine (Dipstick) 500 mg/dL (Negative); Ketone, Urine Negative (Negative); Leukocyte 500 Leu/uL (Negative); Nitrite Negative (Negative); Protein, Urine (Dipstick) Negative (Neg-Trace); RBC/HPF 0-3 HPF (0-3); Specific Gravity, Urine 1.016 (1.002-1.036); Squamous Epithelial 0-3 HPF (0-3); Urobilinogen Normal mg/dL (Less than 2); WBC/HPF Greater than 50 HPF (0-3); pH, Urine 7.5 (5.0-9.0)
[2024-04-04 21:40] LABS: Bacteria/HPF Rare-Few HPF (None Seen); Urine Culture Reflex Yes Yes
== END 2024-04-04 23:25 | disposition home or self-care (01) ==
LOC: ERS 16:54
DX: N39.0 Urinary tract infection, site not specified (principal); I13.10 Hypertensive heart and chronic kidney disease without heart failure, with stage 1 through stage 4 chronic kidney disease, or unspecified chronic kidney disease; E11.22 Type 2 diabetes mellitus with diabetic chronic kidney disease; N18.9 Chronic kidney disease, unspecified; J44.9 Chronic obstructive pulmonary disease, unspecified
CPT/HCPCS: 74177; 80053; 81001; 83690; 85025; 87077; 87086; J1171; J2405; Q9967; 87186; 96374; 96375